=== PATIENT | female | born 1965 | race Caucasian/White ===

== ENCOUNTER 2018-06-20 12:40 | Emergency (ER) | payer MEDICAID ==
[~2018-06-20] VITALS: Ht 157.5 cm; Wt 75.3 kg
[~2018-06-20 12:40] MED LIST: ATOR80TA PO; CARV12.543 PO; FURO-92 PO; LEVO137T3 PO; LEVO200T5 PO; LORA10TA62 PO; LOSA25TA2 PO
[2018-06-20 12:50] VITALS: BP 149/94
[2018-06-20] MEDS ORDERED: KETOROLAC 30 MG/1 ML IM ONE (13:30)
[2018-06-20] MEDS ORDERED: KETOROLAC 30 MG/1 ML ONE (13:31)
== END 2018-06-20 13:54 | disposition home or self-care (01) ==
LOC: ED 13:50
DX: K08.89 Other specified disorders of teeth and supporting structures (principal); K04.7 Periapical abscess without sinus; E78.5 Hyperlipidemia, unspecified; I50.9 Heart failure, unspecified; E78.00 Pure hypercholesterolemia, unspecified; F17.210 Nicotine dependence, cigarettes, uncomplicated; I11.0 Hypertensive heart disease with heart failure
CPT/HCPCS: 96372; 99283; J1885

== ENCOUNTER 2018-10-21 01:30 | Emergency (ER) | payer MEDICAID ==
[~2018-10-21] VITALS: Ht 157.5 cm; Wt 74.9 kg
[2018-10-21 01:32] VITALS: BP 173/96
[2018-10-21] MEDS ORDERED: THYR90TA PO (01:37)
[2018-10-21] MEDS ORDERED: DIAZ5TAB PO (01:37)
--- NOTE | 2018-10-21 01:55 | NUR ---
ASSESSMENT MADE. CHART UP FOR MD TO SEE.
--- NOTE | 2018-10-21 02:37 | NUR ---
PT GIVEN DC INSTRUCTIONS AND SCRIPTS. PT EDUCATED REGARDING DC MEDICATIONS. PT AMB TO DC WITH STEADY GAIT. NO ACUTE DISTRESS AT DC.
== END 2018-10-21 02:38 | disposition home or self-care (01) ==
LOC: ED 02:29
DX: K08.89 Other specified disorders of teeth and supporting structures (principal); I10 Essential (primary) hypertension; E78.5 Hyperlipidemia, unspecified; E78.00 Pure hypercholesterolemia, unspecified; F17.210 Nicotine dependence, cigarettes, uncomplicated
CPT/HCPCS: 99283

== ENCOUNTER 2019-07-08 22:42 | Emergency (ER) | payer MEDICAID ==
[~2019-07-08] VITALS: Ht 157.5 cm; Wt 78.0 kg
[~2019-07-08 22:42] MED LIST changes: +DIAZ5TAB PO; +THYR90TA PO
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
[2019-07-08] MEDS ORDERED: IBUPROFEN 600 MG TABLET PO ONE (23:00)
[2019-07-08 23:44] VITALS: BP 106/81
--- NOTE | 2019-07-08 23:49 | NUR ---
RN to bedside, patient resting comfortably, on phone. Xray completed but radiology note is not in EMR yet. Educated patient on process of radiologist read and then information provided by provider when available. Patient verbalized understanding. Vitals checked and VSS. Provided warm blanket.
== END 2019-07-09 00:26 | disposition home or self-care (01) ==
LOC: ED 23:59
DX: S70.01XA Contusion of right hip, initial encounter (principal); M16.11 Unilateral primary osteoarthritis, right hip; I11.0 Hypertensive heart disease with heart failure; I50.9 Heart failure, unspecified; E78.00 Pure hypercholesterolemia, unspecified; F32.9 Major depressive disorder, single episode, unspecified; F17.210 Nicotine dependence, cigarettes, uncomplicated; W01.198A Fall on same level from slipping, tripping and stumbling with subsequent striking against other object, initial encounter; Y93.89 Activity, other specified; Y92.89 Other specified places as the place of occurrence of the external cause; Y99.8 Other external cause status
CPT/HCPCS: 99283

== ENCOUNTER 2019-07-23 18:35 | Emergency (ER) | payer MEDICAID ==
[~2019-07-23] VITALS: Ht 157.5 cm; Wt 78.3 kg
[2019-07-23 18:52] VITALS: BP 168/96
--- NOTE | 2019-07-23 19:12 | NUR ---
C COLLAR PLACED PER PROVIDER ORDER-PATIENT THEN TRANPORTED TO CT BY RADIOLOGY
--- NOTE | 2019-07-23 19:48 | NUR ---
NO CHANGE IN NEURO EXAM SEE NEUROCHECK
[2019-07-23 20:10] LABS: MICROSCOPIC INDICATED
[2019-07-23 20:11] LABS: CULTURE INDICATED? YES
[2019-07-23] MEDS ORDERED: METHOCARBAMOL 750 MG TABLET ONE (20:58)
[2019-07-23] MEDS ORDERED: KETOROLAC 30 MG/1 ML ONE (20:59)
[2019-07-23] MEDS ORDERED: METHOCARBAMOL 750 MG TABLET PO ONE (21:00)
[2019-07-23] MEDS ORDERED: KETOROLAC 30 MG/1 ML IM ONE (21:00)
--- NOTE | 2019-07-23 21:01 | NUR ---
C-COLLARED REMOVED BY PROVIDER MEDICATED PER EMAR SOFT C-COLLAR ORDERED FROM [facility]
--- NOTE | 2019-07-23 21:50 | NUR ---
Jewelry Racker to [facility] to look for soft c-collar per provider request. stores tech unable to find/nor was movie writer Jewelry Racker to have EMT look/charge authorizer made aware of issue-delaying discharge Patient reports medicines have controlled pain to 02/11
--- NOTE | 2019-07-23 22:49 | NUR ---
report writer had two seperate emt's attempt to locate soft collar. unable to locate. provider made awre. Patient updated/agreeable provided with taxi voucher for discharge
== END 2019-07-23 22:54 | disposition home or self-care (01) ==
LOC: ED 22:45
DX: M54.2 Cervicalgia (principal); M47.892 Other spondylosis, cervical region; M54.5 Low back pain; E78.5 Hyperlipidemia, unspecified; I11.0 Hypertensive heart disease with heart failure; I50.9 Heart failure, unspecified; R51 Headache
CPT/HCPCS: 70450; 72110; 72125; 81001; 87086; 96372; 99284; J1885

== ENCOUNTER 2020-09-14 04:07 | Emergency (ER) | payer MEDICAID ==
[~2020-09-14] VITALS: Ht 157.5 cm; Wt 74.0 kg
[~2020-09-14 04:07] MED LIST changes: +LORA-59 PO; -LORA10TA62 PO
--- NOTE | 2020-09-14 04:51 | NUR ---
pt to room from lobby
[2020-09-14] MEDS ORDERED: CYCLOBENZAPRINE 10 MG TABLET ONE (05:29)
[2020-09-14] MEDS ORDERED: KETOROLAC 30 MG/1 ML ONE (05:29)
[2020-09-14] MEDS ORDERED: CYCLOBENZAPRINE 10 MG TABLET PO ONE (05:30)
[2020-09-14] MEDS ORDERED: KETOROLAC 30 MG/1 ML IM ONE (05:30)
[2020-09-14] MEDS ORDERED: KETOROLAC 60 MG/2 ML ONE (05:31)
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
[2020-09-14 06:32] VITALS: BP 126/78
== END 2020-09-14 07:11 | disposition home or self-care (01) ==
LOC: ED 06:58
DX: S39.012A Strain of muscle, fascia and tendon of lower back, initial encounter (principal); E07.9 Disorder of thyroid, unspecified; Z88.0 Allergy status to penicillin; Z88.2 Allergy status to sulfonamides; Z88.5 Allergy status to narcotic agent; W18.30XA Fall on same level, unspecified, initial encounter; Y93.89 Activity, other specified; Y92.89 Other specified places as the place of occurrence of the external cause; Y99.8 Other external cause status
CPT/HCPCS: 96372; 99283; J1885

== ENCOUNTER 2020-09-24 12:49 | Inpatient (IN) | payer MEDICAID ==
[~2020-09-24] VITALS: Ht 157.5 cm; Wt 84.5 kg
[~2020-09-24 12:49] MED LIST changes: +REMDESIVIR 200 MG in SODIUM CHLORIDE 0.9% 250 ML IVPB ONE
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
[2020-09-24] MEDS ORDERED: ACETAMINOPHEN 500 MG TABLET PO ONE (13:30)
[2020-09-24] MEDS ORDERED: PROMETHAZINE 25MG TABLET PO PRN (13:30)
[2020-09-24] MEDS ORDERED: ACETAMINOPHEN 500 MG TABLET ONE (14:09)
[2020-09-24] MEDS ORDERED: PROMETHAZINE 25MG TABLET ONE (14:09)
--- NOTE | 2020-09-24 14:12 | NUR ---
MEDS ADMIN PER MAR
[2020-09-24 14:18] LABS: BASOPHILS % (AUTO) 0 % (0-1); EOSINOPHILS % (AUTO) 0 % (1-7); LYMPHOCYTES % (AUTO) 18 % (22-44); MD NO; MEAN CORPUSCULAR HEMOGLOBIN 30.8 pg (27.0-34.8); MEAN CORPUSCULAR HGB CONC 34.1 g/dL (32.4-35.8); MEAN PLATELET VOLUME 8.6 fL (7.4-10.4); MONOCYTES % (AUTO) 5 % (2-9); NEUTROPHILS % (AUTO) 77 % (42-75); PLATELET COUNT 306 x10^3/uL (130-400); RED BLOOD COUNT 4.75 x10^6/uL (3.82-5.3); RED CELL DISTRIBUTION WIDTH 15.6 % (9.6-15.2)
[2020-09-24 14:20] LABS: ANION GAP 6 mmol/L (5-15); CALCIUM 9.2 mg/dL (8.5-10.1); CHLORIDE 101 mmol/L (98-107); CREATININE 0.92 mg/dL (0.55-1.02)
--- NOTE | 2020-09-24 15:23 | NUR ---
ALL RESULTS ARE BACK AT THIS TIME. CHART UP FOR RECHECK.
[2020-09-24] MEDS ORDERED: SODIUM CHLORIDE 0.9% 1,000ML IVBOLUS ONE (15:30)
--- NOTE | 2020-09-24 16:21 | NUR ---
PIV PLACED BY TASK RN VIA US. PT GOING TO CT.
[2020-09-24] MEDS ORDERED: OMNIPAQUE 350 MG/ML, 75ML BOTTLE ONE (16:48)
[2020-09-24] MEDS ORDERED: DOXYCYCLINE 100 MG in DEXTROSE 5% 250 ML IV SCH (17:00)
[2020-09-24] MEDS ORDERED: THYR120T PO (17:08)
[2020-09-24] MEDS ORDERED: GABA300C PO ×2 (17:08→17:09)
[2020-09-24] MEDS ORDERED: LOSA100T14 PO (17:08)
[2020-09-24] MEDS ORDERED: ASPI81TA45 PO (17:08)
[2020-09-24] MEDS ORDERED: NAPR-685 PO (17:08)
--- NOTE | 2020-09-24 17:13 | NUR ---
MD AT BEDSIDE TO UPDATE PT ON POC. PT TO BE ADMIT. LAB AT BEDSIDE.
--- NOTE | 2020-09-24 17:14 | NUR ---
PT OXYGEN INCREASED TO 4L NC. PT SLEEPING AND USUALLY WEARS CPAP AT HOME AT NIGHT.
--- NOTE | 2020-09-24 17:31 | NUR ---
break RN note: MD Peñaloza at bedside for admit assessment.
[2020-09-24 17:47] LABS: ALBUMIN 2.8 g/dL (3.4-5.0); BILIRUBIN, DIRECT 0.1 mg/dL (0.1-0.2)
[2020-09-24 17:57] LABS: BILIRUBIN,INDIRECT 0.2 mg/dL (0.0-2.0); BILIRUBIN,TOTAL 0.3 mg/dL (0.2-1.0); TOTAL PROTEIN 7.1 g/dL (6.4-8.2)
[2020-09-24] MEDS ORDERED: DOCUSATE 100 MG CAPSULE PO PRN (18:00)
[2020-09-24] MEDS ORDERED: ONDANSETRON 2MG/ML, 2ML IVPush PRN (18:00)
[2020-09-24] MEDS ORDERED: GUAIFENESIN/DM 200-20MG, 10ML UDC PO PRN (18:00)
--- NOTE | 2020-09-24 18:00 | NUR ---
COVID SWAB COLLECTED AND WALKED TO LAB. PT IN RADIOLOGY AT THIS TIME. THIS RN SPOKE WITH MD THAO AND REVIEWED PT ALLERGIES WITH MD THAO. NOTIFIED THAT HOSPITALIST ALLAN HAS ADDED MERRUM AND AZITHROMYCIN TO ORDER SET. MD THAO INSTRUCTED THIS RN TO CANCEL DOXYCYCLINE AND ADMINISTER MERRUM AND AZITHROMYCIN ORDERED BY MD LEMUS. REPORT GIVEN BACK TO PRIMARY RN DESTIN WHO HAS RETURNED FROM BREAK.
[2020-09-24 18:10] LABS: FREE T4 (FREE THYROXINE) 0.87 ng/dL (0.76-1.46)
[2020-09-24] MEDS: AZITHROMYCIN 500 MG in SODIUM CHLORIDE 0.9% 250 ML IV SCH (18:20)
--- NOTE | 2020-09-24 19:16 | NUR ---
DIET TRAY DELIVERED. PT APPRECIATIVE. PT POSITIONED FOR COMFORT. NADN. AWAITING ADMIT BED.
--- NOTE | 2020-09-24 19:17 | NUR ---
IV ZITHRO RUNNING. NEXT IV ABX TO START AFTER COMPLETION.
[2020-09-24] MEDS ORDERED: REMDESIVIR 200 MG in SODIUM CHLORIDE 0.9% 250 ML IVPB ONE ×2 (20:00→22:30)
--- NOTE | 2020-09-24 20:12 | NUR ---
REPORT GIVEN TO MELISSA JOY. PT RTG TO ROOM 421
[2020-09-24] MEDS: MEROPENEM 1 GM in SODIUM CHLORIDE 0.9% 100 ML IV SCH (20:30)
[2020-09-24 22:22] VITALS: BP 106/65
[2020-09-24] MEDS: ENOXAPARIN 60 MG/0.6 ML SQ SCH (22:44)
[2020-09-24] MEDS: FAMOTIDINE 20 MG TABLET PO SCH (22:45)
[2020-09-24] MEDS: CARVEDILOL 6.25 MG TABLET PO SCH (22:45)
[2020-09-24] MEDS: SODIUM CHLORIDE FLUSH 10ML SYR IVF SCH (22:45)
[2020-09-24] MEDS: MELATONIN 5 MG TABLET PO SCH (22:45)
[2020-09-24] MEDS: GABAPENTIN 300 MG CAPSULE PO SCH (22:45)
[2020-09-24] MEDS ORDERED: NICOTINE 21 MG/24 HR PATCH.TD24 ONE (22:54)
[2020-09-24] MEDS: ACETAMINOPHEN 325 MG TABLET PO PRN (22:56)
[2020-09-24] MEDS: NICOTINE 21 MG/24 HR PATCH.TD24 TD SCH (22:56)
[2020-09-25 00:48] VITALS: BP 93/59
[2020-09-25] MEDS: MEROPENEM 1 GM in SODIUM CHLORIDE 0.9% 100 ML IV SCH ×3 (05:05→21:26)
[2020-09-25] MEDS: THYROID 30 MG TABLET PO SCH (05:13)
[2020-09-25 08:20] VITALS: BP 105/62
[2020-09-25] MEDS: CHOLECALCIFEROL 5,000u TAB PO SCH (09:05)
[2020-09-25] MEDS: FUROSEMIDE 40 MG TABLET PO SCH (09:05)
[2020-09-25] MEDS: CARVEDILOL 6.25 MG TABLET PO SCH ×2 (09:06→21:27)
[2020-09-25] MEDS: ACETAMINOPHEN 325 MG TABLET PO PRN (09:06)
[2020-09-25] MEDS: ZINC SULFATE 220 MG CAPSULE PO SCH (09:06)
[2020-09-25] MEDS: MORPHINE SULFATE 4 MG/ML, 1ML IVPush PRN ×2 (09:07→23:21)
[2020-09-25] MEDS: SODIUM CHLORIDE FLUSH 10ML SYR IVF SCH ×2 (09:08→21:26)
[2020-09-25] MEDS: DEXAMETHASONE 4 MG/ML, 1ML IVPush SCH (09:08)
[2020-09-25] MEDS: ASPIRIN 81 MG TABLET EC PO SCH (09:08)
[2020-09-25] MEDS: FAMOTIDINE 20 MG TABLET PO SCH ×2 (09:09→21:27)
[2020-09-25] MEDS: GABAPENTIN 300 MG CAPSULE PO SCH ×3 (09:28→21:27)
[2020-09-25] MEDS: GUAIFENESIN/DM 200-20MG, 10ML UDC PO SCH ×3 (09:28→21:27)
[2020-09-25] MEDS: THIAMINE 100MG TABLET PO SCH (09:28)
[2020-09-25] MEDS: ASCORBIC ACID 500 MG TABLET PO SCH ×2 (09:28→16:15)
[2020-09-25] MEDS: LORATADINE 10 MG TABLET PO SCH (09:28)
[2020-09-25 10:22] LABS: ALBUMIN 2.6 g/dL (3.4-5.0); ANION GAP 7 mmol/L (5-15); CALCIUM 8.7 mg/dL (8.5-10.1); CHLORIDE 107 mmol/L (98-107)
[2020-09-25 10:28] LABS: ALANINE AMINOTRANSFERASE 21 U/L (12-78); ALKALINE PHOSPHATASE 93 U/L (45-117); BILIRUBIN,TOTAL 0.2 mg/dL (0.2-1.0); CREATININE 0.94 mg/dL (0.55-1.02); TOTAL PROTEIN 6.5 g/dL (6.4-8.2)
[2020-09-25 11:19] VITALS: BP 94/54
[2020-09-25] MEDS: LOSARTAN 25MG TABLET PO SCH (11:20)
[2020-09-25] MEDS: DIAZEPAM 5 MG TABLET PO SCH (11:21)
[2020-09-25 11:55] LABS: BASOPHILS % (AUTO) 0 % (0-1); EOSINOPHILS % (AUTO) 0 % (1-7); LYMPHOCYTES % (AUTO) 16 % (22-44); MEAN CORPUSCULAR HEMOGLOBIN 30.9 pg (27.0-34.8); MEAN CORPUSCULAR HGB CONC 33.3 g/dL (32.4-35.8); MEAN PLATELET VOLUME 8.4 fL (7.4-10.4); MONOCYTES % (AUTO) 5 % (2-9); NEUTROPHILS % (AUTO) 79 % (42-75); PLATELET COUNT 246 x10^3/uL (130-400); RED BLOOD COUNT 4.44 x10^6/uL (3.82-5.3)
[2020-09-25 11:59] LABS: MD NO
[2020-09-25 12:57] VITALS: BP 84/52
[2020-09-25 14:28] VITALS: BP 93/51
[2020-09-25] MEDS: AZITHROMYCIN 500 MG in SODIUM CHLORIDE 0.9% 250 ML IV SCH (17:45)
[2020-09-25 21:24] VITALS: BP 106/64
[2020-09-25] MEDS: ENOXAPARIN 60 MG/0.6 ML SQ SCH (21:26)
[2020-09-25] MEDS: MELATONIN 5 MG TABLET PO SCH (21:27)
[2020-09-25] MEDS ORDERED: REMDESIVIR 100 MG in SODIUM CHLORIDE 0.9% 250 ML IVPB ONE (23:30)
[2020-09-26 00:25] VITALS: BP 114/71
[2020-09-26] MEDS: GUAIFENESIN/DM 200-20MG, 10ML UDC PO SCH ×4 (02:16→22:36)
[2020-09-26] MEDS: MORPHINE SULFATE 4 MG/ML, 1ML IVPush PRN ×3 (06:06→19:34)
[2020-09-26] MEDS: MEROPENEM 1 GM in SODIUM CHLORIDE 0.9% 100 ML IV SCH ×3 (06:06→22:33)
[2020-09-26] MEDS: THYROID 30 MG TABLET PO SCH (06:07)
[2020-09-26 07:02] LABS: ALBUMIN 2.5 g/dL (3.4-5.0); ANION GAP 7 mmol/L (5-15); CALCIUM 9.1 mg/dL (8.5-10.1); CHLORIDE 107 mmol/L (98-107)
[2020-09-26 07:06] LABS: ALANINE AMINOTRANSFERASE 28 U/L (12-78); ALKALINE PHOSPHATASE 122 U/L (45-117); BILIRUBIN,TOTAL 0.2 mg/dL (0.2-1.0); CREATININE 0.88 mg/dL (0.55-1.02); TOTAL PROTEIN 7.3 g/dL (6.4-8.2)
[2020-09-26 07:48] VITALS: BP 116/68
[2020-09-26] MEDS: ASPIRIN 81 MG TABLET EC PO SCH (08:50)
[2020-09-26] MEDS: FUROSEMIDE 40 MG TABLET PO SCH (08:50)
[2020-09-26] MEDS: LORATADINE 10 MG TABLET PO SCH (08:51)
[2020-09-26] MEDS: GABAPENTIN 300 MG CAPSULE PO SCH ×3 (08:51→22:34)
[2020-09-26] MEDS: ASCORBIC ACID 500 MG TABLET PO SCH ×2 (08:51→15:46)
[2020-09-26] MEDS: CARVEDILOL 6.25 MG TABLET PO SCH ×2 (08:51→22:44)
[2020-09-26] MEDS: FAMOTIDINE 20 MG TABLET PO SCH ×2 (08:51→22:34)
[2020-09-26] MEDS: CHOLECALCIFEROL 5,000u TAB PO SCH (08:52)
[2020-09-26] MEDS: DEXAMETHASONE 4 MG/ML, 1ML IVPush SCH (08:52)
[2020-09-26] MEDS: THIAMINE 100MG TABLET PO SCH (08:52)
[2020-09-26] MEDS: ZINC SULFATE 220 MG CAPSULE PO SCH (08:52)
[2020-09-26] MEDS: DIAZEPAM 5 MG TABLET PO SCH (08:52)
[2020-09-26] MEDS: LOSARTAN 25MG TABLET PO SCH (08:52)
[2020-09-26] MEDS: SODIUM CHLORIDE FLUSH 10ML SYR IVF SCH ×2 (08:53→21:00)
[2020-09-26] MEDS: NICOTINE 21 MG/24 HR PATCH.TD24 TD SCH (08:53)
[2020-09-26] MEDS: ACETAMINOPHEN 325 MG TABLET PO PRN ×2 (09:37→15:47)
[2020-09-26 12:41] VITALS: BP 108/82
[2020-09-26] MEDS: AZITHROMYCIN 500 MG in SODIUM CHLORIDE 0.9% 250 ML IV SCH (17:37)
[2020-09-26 19:15] VITALS: BP 116/75
[2020-09-26] MEDS: MELATONIN 5 MG TABLET PO SCH (22:44)
[2020-09-26] MEDS: ENOXAPARIN 60 MG/0.6 ML SQ SCH (22:45)
[2020-09-26] MEDS: REMDESIVIR 100 MG in SODIUM CHLORIDE 0.9% 250 ML IVPB SCH (23:07)
[2020-09-27] MEDS: MORPHINE SULFATE 4 MG/ML, 1ML IVPush PRN ×4 (01:11→22:06)
[2020-09-27 01:19] VITALS: BP 110/71
[2020-09-27] MEDS: GUAIFENESIN/DM 200-20MG, 10ML UDC PO SCH ×4 (04:13→21:49)
[2020-09-27] MEDS: ACETAMINOPHEN 325 MG TABLET PO PRN (04:14)
[2020-09-27] MEDS: MEROPENEM 1 GM in SODIUM CHLORIDE 0.9% 100 ML IV SCH ×3 (04:51→21:46)
[2020-09-27] MEDS: THYROID 30 MG TABLET PO SCH (06:08)
[2020-09-27 06:21] VITALS: BP 127/73
[2020-09-27 06:31] LABS: CHLORIDE 110 mmol/L (98-107)
[2020-09-27 06:38] LABS: ALANINE AMINOTRANSFERASE 35 U/L (12-78); ALBUMIN 2.6 g/dL (3.4-5.0); ALKALINE PHOSPHATASE 114 U/L (45-117); ANION GAP 6 mmol/L (5-15); BILIRUBIN,TOTAL 0.3 mg/dL (0.2-1.0); CALCIUM 9.1 mg/dL (8.5-10.1); CREATININE 0.92 mg/dL (0.55-1.02)
[2020-09-27] MEDS: DEXAMETHASONE 4 MG/ML, 1ML IVPush SCH (08:30)
[2020-09-27] MEDS: GABAPENTIN 300 MG CAPSULE PO SCH ×3 (08:31→21:49)
[2020-09-27] MEDS: CHOLECALCIFEROL 5,000u TAB PO SCH (08:31)
[2020-09-27] MEDS: ZINC SULFATE 220 MG CAPSULE PO SCH (08:31)
[2020-09-27] MEDS: DIAZEPAM 5 MG TABLET PO SCH (08:31)
[2020-09-27] MEDS: FUROSEMIDE 40 MG TABLET PO SCH (08:31)
[2020-09-27] MEDS: LOSARTAN 25MG TABLET PO SCH (08:31)
[2020-09-27] MEDS: LORATADINE 10 MG TABLET PO SCH (08:31)
[2020-09-27] MEDS: FAMOTIDINE 20 MG TABLET PO SCH ×2 (08:32→21:49)
[2020-09-27] MEDS: CARVEDILOL 6.25 MG TABLET PO SCH ×2 (08:32→21:49)
[2020-09-27] MEDS: ASCORBIC ACID 500 MG TABLET PO SCH ×2 (08:32→14:50)
[2020-09-27] MEDS: SODIUM CHLORIDE FLUSH 10ML SYR IVF SCH ×2 (08:32→21:47)
[2020-09-27] MEDS: NICOTINE 21 MG/24 HR PATCH.TD24 TD SCH (08:32)
[2020-09-27] MEDS: THIAMINE 100MG TABLET PO SCH (08:32)
[2020-09-27] MEDS: ASPIRIN 81 MG TABLET EC PO SCH (08:32)
[2020-09-27 11:23] VITALS: BP 141/83
[2020-09-27] MEDS: FUROSEMIDE 40 MG/4 ML IV SCH (11:46)
[2020-09-27] MEDS: AZITHROMYCIN 500 MG in SODIUM CHLORIDE 0.9% 250 ML IV SCH (16:39)
[2020-09-27 18:33] VITALS: BP 137/87
[2020-09-27] MEDS: MELATONIN 5 MG TABLET PO SCH (21:49)
[2020-09-27] MEDS: ENOXAPARIN 60 MG/0.6 ML SQ SCH (21:49)
[2020-09-27] MEDS: REMDESIVIR 100 MG in SODIUM CHLORIDE 0.9% 250 ML IVPB SCH (23:33)
[2020-09-28 00:25] VITALS: BP 128/79
[2020-09-28] MEDS: GUAIFENESIN/DM 200-20MG, 10ML UDC PO SCH ×4 (03:43→22:32)
[2020-09-28] MEDS: MEROPENEM 1 GM in SODIUM CHLORIDE 0.9% 100 ML IV SCH ×3 (05:15→22:31)
[2020-09-28] MEDS: THYROID 30 MG TABLET PO SCH (05:16)
[2020-09-28] MEDS: MORPHINE SULFATE 4 MG/ML, 1ML IVPush PRN ×3 (05:41→19:45)
[2020-09-28 06:06] LABS: CHLORIDE 107 mmol/L (98-107)
[2020-09-28 06:23] LABS: ANION GAP 7 mmol/L (5-15); CALCIUM 9.1 mg/dL (8.5-10.1); CREATININE 0.85 mg/dL (0.55-1.02)
[2020-09-28 06:24] LABS: ALANINE AMINOTRANSFERASE 63 U/L (12-78); ALBUMIN 2.7 g/dL (3.4-5.0); ALKALINE PHOSPHATASE 112 U/L (45-117); BILIRUBIN,TOTAL 0.5 mg/dL (0.2-1.0); TOTAL PROTEIN 6.8 g/dL (6.4-8.2)
[2020-09-28 08:03] VITALS: BP 150/99
[2020-09-28] MEDS: FUROSEMIDE 40 MG/4 ML IV SCH ×2 (08:32→22:33)
[2020-09-28] MEDS: DEXAMETHASONE 4 MG/ML, 1ML IVPush SCH (08:32)
[2020-09-28] MEDS: LORATADINE 10 MG TABLET PO SCH (08:33)
[2020-09-28] MEDS: GABAPENTIN 300 MG CAPSULE PO SCH ×3 (08:33→22:34)
[2020-09-28] MEDS: ZINC SULFATE 220 MG CAPSULE PO SCH (08:33)
[2020-09-28] MEDS: ASCORBIC ACID 500 MG TABLET PO SCH ×2 (08:33→17:29)
[2020-09-28] MEDS: THIAMINE 100MG TABLET PO SCH (08:33)
[2020-09-28] MEDS: FAMOTIDINE 20 MG TABLET PO SCH ×2 (08:33→22:34)
[2020-09-28] MEDS: DIAZEPAM 5 MG TABLET PO SCH (08:33)
[2020-09-28] MEDS: NICOTINE 21 MG/24 HR PATCH.TD24 TD SCH (08:33)
[2020-09-28] MEDS: CHOLECALCIFEROL 5,000u TAB PO SCH (08:33)
[2020-09-28] MEDS: ASPIRIN 81 MG TABLET EC PO SCH (08:34)
[2020-09-28] MEDS: CARVEDILOL 6.25 MG TABLET PO SCH ×2 (08:34→22:34)
[2020-09-28] MEDS: SODIUM CHLORIDE FLUSH 10ML SYR IVF SCH ×2 (08:35→22:31)
[2020-09-28] MEDS ORDERED: LOSARTAN 25MG TABLET PO SCH (09:00)
[2020-09-28] MEDS: KETOROLAC 30 MG/1 ML IVPush SCH ×3 (11:59→23:31)
[2020-09-28 12:20] VITALS: BP 143/81
[2020-09-28] MEDS: AZITHROMYCIN 500 MG in SODIUM CHLORIDE 0.9% 250 ML IV SCH (17:30)
[2020-09-28 19:25] VITALS: BP 136/95
[2020-09-28] MEDS: ENOXAPARIN 60 MG/0.6 ML SQ SCH (22:32)
[2020-09-28] MEDS: MELATONIN 5 MG TABLET PO SCH (23:31)
[2020-09-28] MEDS: REMDESIVIR 100 MG in SODIUM CHLORIDE 0.9% 250 ML IVPB SCH (23:51)
[2020-09-29 00:40] VITALS: BP 133/89
[2020-09-29] MEDS: MORPHINE SULFATE 4 MG/ML, 1ML IVPush PRN (01:02)
[2020-09-29] MEDS: GUAIFENESIN/DM 200-20MG, 10ML UDC PO SCH ×4 (03:00→22:07)
[2020-09-29] MEDS: KETOROLAC 30 MG/1 ML IVPush SCH ×4 (05:33→19:29)
[2020-09-29] MEDS: MEROPENEM 1 GM in SODIUM CHLORIDE 0.9% 100 ML IV SCH ×2 (05:33→13:00)
[2020-09-29] MEDS: THYROID 30 MG TABLET PO SCH (06:13)
[2020-09-29 06:31] LABS: ANION GAP 9 mmol/L (5-15); CALCIUM 9.2 mg/dL (8.5-10.1); CHLORIDE 103 mmol/L (98-107)
[2020-09-29 06:33] LABS: CREATININE 1.01 mg/dL (0.55-1.02)
[2020-09-29 08:29] VITALS: BP 129/86
[2020-09-29] MEDS: FUROSEMIDE 40 MG/4 ML IV SCH (09:00)
[2020-09-29] MEDS: SODIUM CHLORIDE FLUSH 10ML SYR IVF SCH ×2 (09:00→22:08)
[2020-09-29] MEDS: DIAZEPAM 5 MG TABLET PO SCH (09:00)
[2020-09-29] MEDS: DEXAMETHASONE 4 MG/ML, 1ML IVPush SCH (09:00)
[2020-09-29] MEDS: ZINC SULFATE 220 MG CAPSULE PO SCH (09:15)
[2020-09-29] MEDS: ASPIRIN 81 MG TABLET EC PO SCH (09:15)
[2020-09-29] MEDS: NICOTINE 21 MG/24 HR PATCH.TD24 TD SCH (09:15)
[2020-09-29] MEDS: CARVEDILOL 6.25 MG TABLET PO SCH ×2 (09:15→22:08)
[2020-09-29] MEDS: LORATADINE 10 MG TABLET PO SCH (09:16)
[2020-09-29] MEDS: LOSARTAN 100 MG TAB PO SCH (09:16)
[2020-09-29] MEDS: GABAPENTIN 300 MG CAPSULE PO SCH ×3 (09:16→22:07)
[2020-09-29] MEDS: FAMOTIDINE 20 MG TABLET PO SCH ×2 (09:16→22:08)
[2020-09-29] MEDS: ASCORBIC ACID 500 MG TABLET PO SCH ×2 (09:16→17:17)
[2020-09-29] MEDS: CHOLECALCIFEROL 5,000u TAB PO SCH (09:16)
[2020-09-29 13:03] VITALS: BP 121/77
[2020-09-29] MEDS: HYDROcodone/APAP 5/325 TABLET PO PRN (18:35)
[2020-09-29] MEDS: FUROSEMIDE 40 MG TABLET PO SCH (18:36)
[2020-09-29] MEDS: DEXAMETHASONE 4 MG TABLET PO SCH (18:36)
[2020-09-29 20:40] VITALS: BP 137/83
[2020-09-29] MEDS: ENOXAPARIN 60 MG/0.6 ML SQ SCH (22:07)
[2020-09-29] MEDS: MELATONIN 5 MG TABLET PO SCH (22:07)
[2020-09-29] MEDS: THIAMINE 100MG TABLET PO SCH (22:10)
[2020-09-30 03:04] VITALS: BP 121/84
[2020-09-30] MEDS: GUAIFENESIN/DM 200-20MG, 10ML UDC PO SCH ×4 (05:00→21:37)
[2020-09-30] MEDS: THYROID 30 MG TABLET PO SCH (05:52)
[2020-09-30 06:52] LABS: MEAN CORPUSCULAR HGB CONC 32.6 g/dL (32.4-35.8); MEAN PLATELET VOLUME 8.7 fL (7.4-10.4); PLATELET COUNT 614 x10^3/uL (130-400); RED BLOOD COUNT 4.99 x10^6/uL (3.82-5.3); RED CELL DISTRIBUTION WIDTH 16.2 % (9.6-15.2)
[2020-09-30 07:03] LABS: ANION GAP 8 mmol/L (5-15); CALCIUM 9.4 mg/dL (8.5-10.1); CHLORIDE 102 mmol/L (98-107)
[2020-09-30 07:04] LABS: CREATININE 0.81 mg/dL (0.55-1.02)
[2020-09-30 07:34] LABS: MD YES
[2020-09-30 07:35] LABS: <RBC MORPHOLOGY> NORMAL; LYMPH#(MANUAL) 2.91 x10^3/uL (1-3.4); LYMPHS% (MANUAL) 26 % (22-44); MONOS#(MANUAL) 0.34 x10^3/uL (0.3-2.7); MONOS% (MANUAL) 3 % (2-9); MYELOCYTES# (MANUAL) 0.11 x10^3/uL (0-0); MYELOCYTES% (MANUAL) 1 % (0-0); SEG#(MANUAL) 7.84 x10^3/uL (1.8-6.8); SEGS% (MANUAL) 70 % (42-75)
[2020-09-30 07:36] LABS: <PLATELET ESTIMATE> INCREASED; LARGE PLATELETS 1+
[2020-09-30] MEDS: FUROSEMIDE 40 MG TABLET PO SCH ×2 (08:36→18:23)
[2020-09-30] MEDS: ZINC SULFATE 220 MG CAPSULE PO SCH (08:37)
[2020-09-30] MEDS: LOSARTAN 100 MG TAB PO SCH (08:37)
[2020-09-30] MEDS: GABAPENTIN 300 MG CAPSULE PO SCH ×3 (08:37→21:36)
[2020-09-30] MEDS: FAMOTIDINE 20 MG TABLET PO SCH ×2 (08:37→21:37)
[2020-09-30] MEDS: LORATADINE 10 MG TABLET PO SCH (08:37)
[2020-09-30] MEDS: ASPIRIN 81 MG TABLET EC PO SCH (08:38)
[2020-09-30] MEDS: DIAZEPAM 5 MG TABLET PO SCH (08:38)
[2020-09-30] MEDS: ASCORBIC ACID 500 MG TABLET PO SCH ×2 (08:39→15:15)
[2020-09-30] MEDS: CARVEDILOL 6.25 MG TABLET PO SCH ×2 (08:39→21:36)
[2020-09-30] MEDS: CHOLECALCIFEROL 5,000u TAB PO SCH (08:39)
[2020-09-30] MEDS: THIAMINE 100MG TABLET PO SCH (08:40)
[2020-09-30] MEDS: NICOTINE 21 MG/24 HR PATCH.TD24 TD SCH (08:40)
[2020-09-30 08:54] VITALS: BP 139/90
[2020-09-30] MEDS: SODIUM CHLORIDE FLUSH 10ML SYR IVF SCH ×2 (09:00→09:29)
[2020-09-30] MEDS: HYDROcodone/APAP 5/325 TABLET PO PRN ×3 (09:28→21:38)
[2020-09-30] MEDS: DEXAMETHASONE 4 MG TABLET PO SCH (09:28)
[2020-09-30] MEDS: KETOROLAC 30 MG/1 ML IVPush SCH ×3 (10:47→23:30)
[2020-09-30 15:55] VITALS: BP 98/63
[2020-09-30 19:15] VITALS: BP 130/82
[2020-09-30 21:35] VITALS: BP 120/80
[2020-09-30] MEDS: MELATONIN 5 MG TABLET PO SCH (21:37)
[2020-09-30] MEDS: ENOXAPARIN 60 MG/0.6 ML SQ SCH (21:41)
[2020-10-01 00:14] VITALS: BP 121/79
[2020-10-01] MEDS: HYDROcodone/APAP 5/325 TABLET PO PRN ×2 (03:25→09:49)
[2020-10-01] MEDS: GUAIFENESIN/DM 200-20MG, 10ML UDC PO SCH ×3 (03:25→15:30)
[2020-10-01] MEDS: KETOROLAC 30 MG/1 ML IVPush SCH ×2 (05:01→09:38)
[2020-10-01] MEDS: THYROID 30 MG TABLET PO SCH (05:16)
[2020-10-01 07:22] VITALS: BP 91/55
[2020-10-01] MEDS: DEXAMETHASONE 4 MG TABLET PO SCH (09:48)
[2020-10-01] MEDS: THIAMINE 100MG TABLET PO SCH (09:48)
[2020-10-01] MEDS: LORATADINE 10 MG TABLET PO SCH (09:48)
[2020-10-01] MEDS: ZINC SULFATE 220 MG CAPSULE PO SCH (09:48)
[2020-10-01] MEDS: ASCORBIC ACID 500 MG TABLET PO SCH (09:48)
[2020-10-01] MEDS: GABAPENTIN 300 MG CAPSULE PO SCH ×2 (09:49→15:30)
[2020-10-01] MEDS: CARVEDILOL 6.25 MG TABLET PO SCH (09:50)
[2020-10-01] MEDS: FUROSEMIDE 40 MG TABLET PO SCH (09:51)
[2020-10-01] MEDS: NICOTINE 21 MG/24 HR PATCH.TD24 TD SCH (09:51)
[2020-10-01] MEDS: CHOLECALCIFEROL 5,000u TAB PO SCH (09:51)
[2020-10-01] MEDS: LOSARTAN 100 MG TAB PO SCH (09:52)
[2020-10-01] MEDS: ASPIRIN 81 MG TABLET EC PO SCH (09:52)
[2020-10-01] MEDS: FAMOTIDINE 20 MG TABLET PO SCH (09:52)
[2020-10-01] MEDS: DIAZEPAM 5 MG TABLET PO SCH (09:52)
[2020-10-01] MEDS ORDERED: DEXA4TAB66 PO (12:16)
[2020-10-01 12:40] VITALS: BP 104/68
[2020-10-01] MEDS ORDERED: SPIR25TA5 PO (12:57)
== END 2020-10-01 15:55 | disposition home health service (06) | DRG 137 ==
LOC: ED 14:15 → EDIP 17:06 → 4WST 22:52 → 4EST 09-29 08:30
PROVIDERS: ADMIT Internal Medicine; ATTEND Hospitalist
PROC: 5A09557 Assistance with Respiratory Ventilation, Greater than 96 Consecutive Hours, Continuous Positive Airway Pressure (ICD-10-PCS; principal; 2020-09-25)
PROC: XW033E5 Introduction of Remdesivir Anti-infective into Peripheral Vein, Percutaneous Approach, New Technology Group 5 (ICD-10-PCS; 2020-09-25)
DX: U07.1 COVID-19 (principal); E03.9 Hypothyroidism, unspecified; E78.00 Pure hypercholesterolemia, unspecified; E78.5 Hyperlipidemia, unspecified; E87.1 Hypo-osmolality and hyponatremia; F17.210 Nicotine dependence, cigarettes, uncomplicated; G47.33 Obstructive sleep apnea (adult) (pediatric); I11.0 Hypertensive heart disease with heart failure; I50.22 Chronic systolic (congestive) heart failure; J12.82 Pneumonia due to coronavirus disease 2019; J96.01 Acute respiratory failure with hypoxia; Z88.0 Allergy status to penicillin; Z88.2 Allergy status to sulfonamides; Z88.8 Allergy status to other drugs, medicaments and biological substances; Z85.3 Personal history of malignant neoplasm of breast; R73.03 Prediabetes; Z86.73 Personal history of transient ischemic attack (TIA), and cerebral infarction without residual deficits; I42.8 Other cardiomyopathies; M51.37 Other intervertebral disc degeneration, lumbosacral region; I34.0 Nonrheumatic mitral (valve) insufficiency
CPT/HCPCS: 36415; 70450; 71045; 71275; 72192; 72220; 80048; 80053; 80076; 82728; 83605; 83615; 83735; 83880; 84100; 84145; 84439; 84443; 85025; 85379; 86140; 87040; 87070; 87205; 93005; 93306; 94660; 99285; G0378; J0456; J1100; J1650; J1885; J1940; J2185; Q0169; Q9967; J2270; J7030; J7050; U0003

== ENCOUNTER 2020-10-03 21:54 | Emergency (ER) | payer MEDICAID ==
[~2020-10-03] VITALS: Ht 157.5 cm; Wt 78.7 kg
[~2020-10-03 21:54] MED LIST changes: +ASPI81TA45 PO; +DEXA4TAB66 PO; +GABA300C PO; +LOSA100T14 PO; +NAPR-685 PO; -REMDESIVIR 200 MG in SODIUM CHLORIDE 0.9% 250 ML IVPB ONE; +SPIR25TA5 PO; +THYR120T PO
[2020-10-03 21:56] VITALS: BP 145/89
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
[2020-10-03] MEDS ORDERED: HYDROcodone/APAP 5/325 TABLET ONE (22:58)
[2020-10-03] MEDS ORDERED: HYDROcodone/APAP 5/325 TABLET PO ONE (23:00)
== END 2020-10-04 00:26 | disposition home or self-care (01) ==
LOC: ED 22:41
DX: B37.0 Candidal stomatitis (principal); I11.0 Hypertensive heart disease with heart failure; I50.9 Heart failure, unspecified; E78.00 Pure hypercholesterolemia, unspecified; F17.210 Nicotine dependence, cigarettes, uncomplicated; Z72.9 Problem related to lifestyle, unspecified; Z86.39 Personal history of other endocrine, nutritional and metabolic disease
CPT/HCPCS: 99283; 99406

== ENCOUNTER 2020-10-17 03:06 | Emergency (ER) | payer MEDICAID ==
[~2020-10-17] VITALS: Ht 157.5 cm; Wt 80.1 kg
[2020-10-17] MEDS ORDERED: FUROSEMIDE 40 MG TABLET PO ONE (03:38)
[2020-10-17] MEDS ORDERED: FUROSEMIDE 40 MG TABLET ONE (03:44)
--- NOTE | 2020-10-17 03:52 | NUR ---
PT MEDICATED PER MAR
--- NOTE | 2020-10-17 04:00 | NUR ---
THIS IS A 55Y F THAT COMES IN FOR SOB/ COUGH. PT WAS RECENTLY DC HOME AND WAS UNABLE/ DIDN'T GET HER MEDICATIONS FILLED. PT REPORTS BEING WITHOUT HER DIURETIC FOR A PERIOD OF DAYS. PT CONNECTED TO ALL MONIORING VSS, NADN SPEAKING IN FULL SENTENCES PT WATCHING VIDEOS ON PHONE WHILE RN DISCSSING POC.
[2020-10-17 04:35] VITALS: BP 142/84
--- NOTE | 2020-10-17 04:36 | NUR ---
Patient/Caregiver given discharge instructions and they have confirmed that they understand the instructions. Patient wheeled to dc at request
== END 2020-10-17 04:49 | disposition home or self-care (01) ==
LOC: ED 03:36
DX: R06.00 Dyspnea, unspecified (principal); R60.0 Localized edema; Z76.0 Encounter for issue of repeat prescription; R94.31 Abnormal electrocardiogram [ECG] [EKG]; I11.0 Hypertensive heart disease with heart failure; I50.9 Heart failure, unspecified; E78.00 Pure hypercholesterolemia, unspecified; E78.5 Hyperlipidemia, unspecified; F17.210 Nicotine dependence, cigarettes, uncomplicated
CPT/HCPCS: 71045; 93005; 99283; 99406

== ENCOUNTER 2020-12-05 18:47 | Emergency (ER) | payer MEDICAID ==
[~2020-12-05] VITALS: Ht 157.5 cm; Wt 81.7 kg
--- NOTE | 2020-12-05 19:45 | NUR ---
PT TO ROOM, AND INTO HOSPITAL GOWN AND RESTING ON STRETCHER. PT C/O PAIN AND SWELLING TO BILATERAL LOWER LEGS. ON ASSESMENT PT HAS +3 EDEMA TO BILATERAL FEET WITH ERYTHEMA. WEAK PULSE PALPATED BILATERALY DUE TO SWELLING. REDNESS GOES UP HER LEGS JUST ABOVE THE KNEES WITH SWELLING. THE REST OF HER LEGS ARE NON-SWOLLEN. PA TO BEDSIDE TO ELEAZAR PT.
--- NOTE | 2020-12-05 19:46 | NUR ---
EKG BEING DONE BY VICE PRESIDENT MEDIA RELATIONS.
[2020-12-05] MEDS ORDERED: SODIUM CHLORIDE FLUSH 10ML SYR IVF ONE (20:00)
--- NOTE | 2020-12-05 20:23 | NUR ---
PT A&OX4, AND RN TO BEDSIDE TO START PIV WITH ULTRASOUND MACHINE PT IS A VERY DIFFICULT STICK. PORTABLE CXRY DONE.
--- NOTE | 2020-12-05 20:57 | NUR ---
21 G PIV STARTED TO LEFT CHEST AREA UNDER ULTRASOUND. SOFTWARE LICENSING EXECUTIVE TO BEDSIDE TO DRAW BLOOD WAS UNABLE TO DRAW BLOOD FROM PIV START.
--- NOTE | 2020-12-05 21:21 | NUR ---
BLOOD DRAWN FROM PIV ON LEFT CHEST WALL. PT TOLERATED WELL, AND IN BETTER SPIRITS. PT WATCHING T.V. AND HAS CALL LIGHT WITHIN REACH AND SIDERAILS UP X2.
[2020-12-05 21:28] LABS: MEAN CORPUSCULAR HEMOGLOBIN 31.4 pg (27.0-34.8); MEAN CORPUSCULAR HGB CONC 34.2 g/dL (32.4-35.8); PLATELET COUNT 345 x10^3/uL (130-400); RED BLOOD COUNT 4.16 x10^6/uL (3.82-5.3); RED CELL DISTRIBUTION WIDTH 15.5 % (9.6-15.2)
[2020-12-05 21:35] LABS: MD YES
[2020-12-05 21:36] LABS: ALANINE AMINOTRANSFERASE 13 U/L (12-78); ANION GAP 5 mmol/L (5-15); CALCIUM 8.5 mg/dL (8.5-10.1); CHLORIDE 114 mmol/L (98-107); CREATININE 0.69 mg/dL (0.55-1.02)
[2020-12-05 21:40] LABS: ALKALINE PHOSPHATASE 97 U/L (45-117); TOTAL PROTEIN 5.9 g/dL (6.4-8.2); TROPONIN I < 0.015 ng/mL (0.000-0.045)
[2020-12-05 21:55] LABS: BILIRUBIN,TOTAL 0.1 mg/dL (0.2-1.0)
[2020-12-05 22:10] LABS: ANISOCYTOSIS 1+; EOS#(MANUAL) 0.57 x10^3/uL (0.0-0.4); EOS% (MANUAL) 7 % (1-7); LYMPH#(MANUAL) 2.62 x10^3/uL (1-3.4); LYMPHS% (MANUAL) 32 % (22-44); METAMYELOCYTES# (MANUAL) 0.08 x10^3/uL (0-0); METAMYELOCYTES% (MANUAL) 1 % (0-1); MONOS#(MANUAL) 0.49 x10^3/uL (0.3-2.7); MONOS% (MANUAL) 6 % (2-9); REACTIVE LYMPHS # (MANUAL) 0.49 x10^3/uL (0-0); REACTIVE LYMPHS % (MANUAL) 6 % (0-0); SEG#(MANUAL) 3.94 x10^3/uL (1.8-6.8); SEGS% (MANUAL) 48 % (42-75)
[2020-12-05 22:12] LABS: <PLATELET ESTIMATE> ADEQUATE
[2020-12-05 22:13] LABS: LARGE PLATELETS 1+
[2020-12-05 22:18] VITALS: BP 138/78
[2020-12-05] MEDS ORDERED: FUROSEMIDE 40 MG/4 ML ONE (22:23)
[2020-12-05] MEDS ORDERED: FUROSEMIDE 40 MG/4 ML IV ONE (22:30)
== END 2020-12-05 22:50 | disposition home or self-care (01) ==
LOC: ED 20:43
DX: I83.12 Varicose veins of left lower extremity with inflammation (principal); I83.11 Varicose veins of right lower extremity with inflammation; R60.0 Localized edema; G89.29 Other chronic pain; M79.672 Pain in left foot; M79.671 Pain in right foot; I11.0 Hypertensive heart disease with heart failure; I50.9 Heart failure, unspecified; E78.5 Hyperlipidemia, unspecified; E78.00 Pure hypercholesterolemia, unspecified; R07.89 Other chest pain; Z86.39 Personal history of other endocrine, nutritional and metabolic disease
CPT/HCPCS: 36415; 71045; 80053; 83880; 84484; 85025; 93005; 96372; 96374; 99285